=== PATIENT | female | born 1985 | race Caucasian/White ===

== ENCOUNTER 2018-12-12 10:08 | Outpatient (CLI) | payer BC ==
--- NOTE | 2018-12-12 11:39 | MMO ---
Bilateral MAMMO Bilat Diag [facility]. CLINICAL HISTORY: Patient is 33 years old and is seen for diagnostic exam. The patient has the following family history of breast cancer: mother, at age 52. The patient has no personal history of cancer. VIEWS: The views performed were: bilateral craniocaudal with tomosynthesis; bilateral mediolateral with tomosynthesis; bilateral mediolateral oblique with tomosynthesis; left mediolateral oblique spot compression with tomosynthesis; left craniocaudal spot compression with tomosynthesis; and left mediolateral spot compression with tomosynthesis. FILMS COMPARED: The present examination has been compared to a prior imaging study performed at [facility] on 12/12/2018. MAMMOGRAM FINDINGS: The breasts are extremely dense, which may lower the sensitivity of mammography. IMPRESSION: FINDING 1: FINDING IN THE RIGHT BREAST IS BENIGN. ULTRASOUND THE PALPABLE FINDING. NEGATIVE. FINDING 2: FINDING IN THE LEFT BREAST IS PROBABLY BENIGN. FOLLOW-UP IN 6 MONTHS IS RECOMMENDED. POSSIBLE ARCHITECHTURAL IRREGULARITY. ULTRASOUND SMALL CYST. THE RESULTS OF THIS EXAM WERE SENT TO THE PATIENT. ACR BI-RADS Category 3 - Probably benign finding - short interval follow-up suggested. [facility] will notify the patient of the need for additional imaging services. MAMMOGRAPHY NOTE: 1. A negative mammogram report should not delay a biopsy if a dominant of clinically suspicious mass is present. 2. Approximately 10% to 15% of breast cancers are not detected by mammography. 3. Adenosis and dense breasts may obscure an underlying neoplasm. Reported by: RACHEL ROBINS MD Electonically Signed: [id number]
--- NOTE | 2018-12-12 12:41 | ULT ---
RIGHT BREAST ULTRASOUND: HISTORY: The patient presents with a palpable finding in the right breast. The right breast is evaluated at the area of palpable finding, which is at approximately 10 o'clock, 8 cm from the nipple. This area shows slightly asymmetric echogenic glandular tissue. No solid or c ystic mass. There is no mammographic finding to account for this. Findings consistent with benign findings. No abnormal ultrasound finding or mammographic finding. LEFT BREAST ULTRASOUND: FINDINGS: Diagnostic mammogram demonstrated some possible mild architectural irregularity in the upper outer le ft breast, at approximately the 1 o'clock position, over a several centimeter in diameter area. Ultra sound examination of the left breast was performed to evaluate that region. At approximately 1 o'clock, 7 cm from the nipple, there is a small, circumscribed, hypoechoic focus, measuring 0.3 x 0.4 x 0.4 cm in size, which has the appearance of a small, slightly septated cyst or lymph node. This does not represent the area of questionable architectural irregularity seen on the diagnostic mammogram. There is no evidence for solid mass or evidence for architectural distortion b y ultrasound in the region of mammographic concern. IMPRESSION: 1. Small, probably septated cyst or lymph node at 1 o'clock, 7 cm from the nipple, without evidence for associated solid mass or evidence for architectural distortion by ultrasound. 2. BI-RADS category 3-Probably benign findings. Follow-up left unilateral diagnostic mammogram in s ix months and left breast ultrasound in six months, to confirm expected stability of the hypodense no dular area at 1 o'clock, 7 cm from the nipple, and confirm expected stability of minimal architectura l irregularity in the upper, slightly outer left breast, also in the 1 o'clock position. POS: OFF
== END 2018-12-12 10:09 | disposition home or self-care (01) ==
LOC: BICMAMMO 10:08
PROVIDERS: ATTEND Student in an Organized Health Care Education/Training Program
DX: N63.11 Unspecified lump in the right breast, upper outer quadrant (principal); Z80.3 Family history of malignant neoplasm of breast
CPT/HCPCS: 77066; G0279

== ENCOUNTER 2019-12-14 10:15 | Outpatient (CLI) | payer BC ==
--- NOTE | 2019-12-14 11:26 | ULT ---
EXAM: US Breast Limited Lt PROVIDED CLINICAL HISTORY: Abnormal mammogram COMPARISON: 12/12/2018 FINDINGS: Limited sonographic interrogation of the left breast at the 1:00 position in the region of prior sono graphic and current mammographic concern was performed. There is a 1.1 cm simple appearing cyst present at the 1:00 position of the left breast. No suspicious sonographic findings are evident. IMPRESSION: No suspicious sonographic findings are evident to correspond with the asymmetry seen on mammography. Six-month follow-up left-sided diagnostic mammogram is recommended. BI-RADS 3 -- probably benign, 6-month follow-up
--- NOTE | 2019-12-14 11:27 | MMO ---
Bilateral MAMMO Bilat Diag [facility]. CLINICAL HISTORY: Patient is 34 years old and is seen for diagnostic exam. The patient has the following family history of breast cancer: mother, at age 52. The patient has no personal history of cancer. VIEWS: The views performed were: bilateral craniocaudal with tomosynthesis; bilateral mediolateral oblique with tomosynthesis; and bilateral mediolateral with tomosynthesis. FILMS COMPARED: The present examination has been compared to prior imaging studies performed at [facility] on 12/12/2018 and 12/14/2019. This study has been interpreted with the assistance of computer-aided detection. MAMMOGRAM FINDINGS: The breasts are extremely dense, which may lower the sensitivity of mammography. Finding 1: There is an oval mass measuring 12 millimeters with circumscribed margins seen in the left breast at 1 o'clock. The mass was shown to be a cyst on ultrasound. Finding 2: There is an asymmetry seen in the left breast at 1 o'clock. There is suggestion of distortion on the MLO view, not supported on the additional views. Ultrasound demonstrates no suspicous findings in this region. In the right breast, there are no suspicious masses, calcifications or areas of architectural distortion. IMPRESSION: FINDING 1: MASS IN THE LEFT BREAST AT 1 O'CLOCK IS BENIGN. FINDING 2: ASYMMETRY IN THE LEFT BREAST AT 1 O'CLOCK IS PROBABLY BENIGN. FOLLOW-UP IN 6 MONTHS IS RECOMMENDED. THE RESULTS OF THIS EXAM WERE SENT TO THE PATIENT. ACR BI-RADS Category 3 - Probably benign finding - short interval follow-up suggested. [facility] will notify the patient of the need for additional imaging services. MAMMOGRAPHY NOTE: 1. A negative mammogram report should not delay a biopsy if a dominant of clinically suspicious mass is present. 2. Approximately 10% to 15% of breast cancers are not detected by mammography. 3. Adenosis and dense breasts may obscure an underlying neoplasm. Reported by: DANIKA DIXON MD Electonically Signed: [id number]
== END 2019-12-14 10:16 | disposition home or self-care (01) ==
LOC: BICMAMMO 10:15
PROVIDERS: ATTEND Student in an Organized Health Care Education/Training Program
DX: R92.2 Inconclusive mammogram (principal); N63.21 Unspecified lump in the left breast, upper outer quadrant; N64.89 Other specified disorders of breast
CPT/HCPCS: 77066; G0279